=== PATIENT | female | born 1985 | race Caucasian/White ===

== ENCOUNTER 2019-03-29 08:20 | Emergency (ER) | payer MEDICAID ==
[2019-03-29] MEDS ORDERED: Promethazine 25 MG/ML SDV IM ONE (09:16)
[2019-03-29] MEDS ORDERED: Diazepam 5 MG Tab PO ONE (09:16)
[2019-03-29] MEDS ORDERED: HYDROmorphone 2 MG/ML SDV IM ONE (09:16)
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
== END 2019-03-29 10:00 | disposition home or self-care (01) ==
LOC: MERGE 08:20 → FB.ED 08:20 → EDBD 08:20 → FB.ED 10:00
DX: S33.5XXA Sprain of ligaments of lumbar spine, initial encounter (principal); K21.9 Gastro-esophageal reflux disease without esophagitis; F17.210 Nicotine dependence, cigarettes, uncomplicated; Z88.7 Allergy status to serum and vaccine; X50.0XXA Overexertion from strenuous movement or load, initial encounter
CPT/HCPCS: 96372; 99283; A9270; J1170; J2550

== ENCOUNTER 2019-07-03 01:34 | Emergency (ER) | payer MEDICAID ==
[2019-07-03] MEDS ORDERED: Ciprofloxacin 500 MG Tab PO ONE (02:11)
[2019-07-03] MEDS ORDERED: Phenazopyridine 95 MG Tab PO ONE (02:17)
[2019-07-03] MEDS ORDERED: Phenazopyridine 95 MG Tab ONE (02:20)
--- NOTE | 2019-07-03 02:25 | EDM.PDOC ---
ED HPI GENERAL MEDICAL PROBLEM - General Chief Complaint: Genitourinary Problem Stated Complaint: BLADDER INFECTION Time Seen by Provider: 07/03/19 01:50 Source of Information: Reports: Patient, Family History Limitations: Reports: No Limitations - History of Present Illness INITIAL COMMENTS - FREE TEXT/NARRATIVE: 33 y.o.w.f with a H/O disc prolapse, come to the ed with burning urinations of 1 day. No SOB, no CP, no N/V/D or any other acute med issues. 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 - Related Data Allergies Allergy/AdvReac Type Severity Reaction Status Date / Time tetanus and diphtheria Allergy Hives Verified 07/03/19 03:25 toxoids bees Allergy Airway Uncoded 07/03/19 03:26 Tightness steri strips Allergy Rash Uncoded 07/03/19 03:27 Home Meds: Home Meds Ciprofloxacin HCl [Cipro] 500 mg PO BID #20 tablet 07/03/19 [Rx] Gabapentin [Neurontin] 100 mg PO TID 07/03/19 [History] Omeprazole 20 mg PO DAILY 07/03/19 [History] Phenazopyridine HCl [Pyridium] 100 mg PO TID #9 tablet 07/03/19 [Rx] Past Medical History Gastrointestinal History: Reports: GERD Genitourinary History: Reports: None LAP HAND TOOL History: Reports: Endometriosis, Other (See Below), Polycystic Ovaries Other LAP HAND TOOL History: exp lap with cyst removal. Musculoskeletal History: Reports: Back Pain, Chronic, Fracture, Other (See Below ) Other Musculoskeletal History: hx fx R 2nd toe, R thumb, cyst removal L hand/ wrist Neurological History: Reports: Concussion Psychiatric History: Reports: Suicide Attempt Endocrine/Metabolic History: Reports: Obesity/BMI 30+ - Infectious Disease History Infectious Disease History: Reports: Chicken Pox - Past Surgical History GI Surgical History: Reports: Cholecystectomy, Hernia Repair/Other (Umbilical) Female Surgical History: Reports: Other (See Below) (Exploratory laparotomy) Musculoskeletal Surgical History: Reports: Other (See Below) (Left wrist ganglion cyst removal) Social & Family History - Family History Family Medical History: Noncontributory - Caffeine Use Caffeine Use: Reports: Coffee - Living Situation & Occupation Occupation: Employed (Works as a healthcare provider at a custodial) ED ROS GENERAL - Review of Systems Review Of Systems: See Below Constitutional: Reports: No Symptoms HEENT: Reports: No Symptoms Respiratory: Reports: No Symptoms Cardiovascular: Reports: No Symptoms Endocrine: Reports: No Symptoms GI/Abdominal: Reports: No Symptoms : Reports: Dysuria Musculoskeletal: Reports: Back Pain Skin: Reports: No Symptoms Neurological: Reports: No Symptoms Psychiatric: Reports: No Symptoms Hematologic/Lymphatic: Reports: No Symptoms Immunologic: Reports: No Symptoms ED EXAM, RENAL/ - Physical Exam Exam: See Below Exam Limited By: No Limitations General Appearance: Alert, WD/WN, Mild Distress Eye Exam: Bilateral Eye: Normal Inspection Ears: Normal External Exam, Normal Canal Nose: Normal Inspection, Normal Mucosa, No Blood Throat/Mouth: Normal Lips, Normal Voice, No Airway Compromise Head: Atraumatic, Normocephalic Neck: Normal Inspection Respiratory/Chest: No Respiratory Distress, Lungs Clear, Normal Breath Sounds, No Accessory Muscle Use, Chest Non-Tender Cardiovascular: Normal Peripheral Pulses, Regular Rate, Rhythm, No Edema, No Gallop, No Murmur, No Rub GI/Abdominal: Soft, No Organomegaly, Tender (suprapubic) (Female) Exam: Deferred Rectal (Female) Exam: Deferred Back Exam: Normal Inspection, Full Range of Motion Extremities: Normal Inspection, Normal Range of Motion, Non-Tender Neurological: Alert, Oriented, CN II-XII Intact, Normal Cognition Psychiatric: Normal Affect, Normal Mood Skin Exam: Warm, Dry, Intact, Normal Color, No Rash Lymphatic: No Adenopathy Course - Vital Signs Text/Narrative:: 33 y.o.w.f with a H/O disc prolapse, come to the ed with burning urinations of 1 day. No SOB, no CP, no N/V/D or any other acute med issues. BP 109/73, RR 18 Pulse ox 98% on RA temp 36.8 pulse 78 PE: WNWD W F with urinary symptoms. Labs: UA: UTI with hematuria, U Cx is pending Impression: H/O Bulging disk, UTI Tx: Pyridium, Cipro Reexam: Improved Plan: D/C with instructions Last Recorded V/S: Last Vital Signs Temp 36.6 C 07/03/19 01:50 Pulse 88 07/03/19 01:50 Resp 16 07/03/19 01:50 BP 109/73 07/03/19 01:50 Pulse Ox 97 07/03/19 01:50 - Orders/Labs/Meds Orders: Active Orders 24 hr Category Date Time Status CULTURE URINE [RM] Stat Lab 07/03/19 01:45 Received Labs: Laboratory Tests 07/03/19 07/03/19 Range/Units 01:48 01:48 Urine Color Yellow (YELLOW) Urine Appearance Slightly cloudy (CLEAR) Urine pH 5.0 (5.0-6.5) Ur Specific [place]lan 1.025 (1.010-1.025) Urine Protein Trace (NEGATIVE) mg/dL Urine Glucose (UA) Normal (NORMAL) mg/dL Urine Ketones 15 H (NEGATIVE) mg/dL Urine Occult Blood Moderate H (NEGATIVE) Urine Nitrite Negative (NEGATIVE) Urine Bilirubin Negative (NEGATIVE) Urine Urobilinogen Normal (NEGATIVE) mg/dL Ur Leukocyte Esterase Large H (NEGATIVE) Urine RBC 5-10 H (0-5) Urine WBC 20-30 H (0-5) Ur Squamous Epith Cells Moderate H (NS,R,O) Amorphous Sediment Few Urine Bacteria Moderate H (NS) Urine HCG, Qual Negative (NEGATIVE) Meds: Medications Discontinued Medications Generic Name Dose Route Start Last Admin Trade Name Freq PRN Reason Stop Dose Admin Ciprofloxacin 500 mg 07/03/19 02:11 07/03/19 02:21 Ciprofloxacin Hcl PO 07/03/19 02:12 500 mg ONETIME ONE Administration Phenazopyridine HCl 95 mg 07/03/19 02:17 07/03/19 02:21 Urinary Pain Relief PO 07/03/19 02:18 95 mg ONETIME ONE Administration Phenazopyridine HCl Confirm 07/03/19 02:20 07/03/19 03:18 Urinary Pain Relief Administered 07/03/19 02:21 Not Given Dose 95 mg .ROUTE .STK-MED ONE Departure - Departure Time of Disposition: 02:22 Disposition: Home, Self-Care 01 Condition: Good Clinical Impression: Back pain, chronic UTI (urinary tract infection) Qualifiers: Urinary tract infection type: acute cystitis Hematuria presence: with hematuria Qualified Code(s): N30.01 - Acute cystitis with hematuria - Discharge Information Prescriptions: Ciprofloxacin HCl [Cipro] 500 mg PO BID #20 tablet Phenazopyridine HCl [Pyridium] 100 mg PO TID #9 tablet Referrals: Mercedez Sthal NP [Primary Care Provider] - Forms: ED Department Discharge Additional Instructions: Please increase water intake, please the the meds as recommended, please f/u, come back if your symptoms get worse acutely. Please apply ice to your back, take Motrin for pain - My Orders Last 24 Hours: My Active Orders 07/03/19 01:45 CULTURE URINE [RM] Stat - Assessment/Plan Last 24 Hours: My Active Orders 07/03/19 01:45 CULTURE URINE [RM] Stat
== END 2019-07-03 02:35 | disposition home or self-care (01) ==
LOC: FB.ED 01:34
DX: M54.5 Low back pain (principal); G89.29 Other chronic pain; N30.01 Acute cystitis with hematuria; K21.9 Gastro-esophageal reflux disease without esophagitis; E66.9 Obesity, unspecified; Z68.32 Body mass index [BMI] 32.0-32.9, adult; Z91.030 Bee allergy status; Z88.7 Allergy status to serum and vaccine; Z91.09 Other allergy status, other than to drugs and biological substances; Z79.899 Other long term (current) drug therapy
CPT/HCPCS: 81001; 81025; 87086; 99283; A9270

== ENCOUNTER 2020-07-24 22:07 | Emergency (ER) | payer MEDICAID ==
[2020-07-24] MEDS ORDERED: predniSONE 20 MG Tab PO ONE (22:45)
--- NOTE | 2020-07-24 22:50 | EDM.PDOC ---
ED HPI GENERAL MEDICAL PROBLEM - General Chief Complaint: Respiratory Problem Stated Complaint: ASTHMA Time Seen by Provider: 07/24/20 22:35 Source of Information: Reports: Patient History Limitations: Reports: No Limitations - History of Present Illness INITIAL COMMENTS - FREE TEXT/NARRATIVE: Alaina comes into [facility] ED with a 10 hour hx of chest congestion, wheezing, SOB, cough, and malaise. She has felt febrile, although she was afebrile on admissin. There is headache, lt headiness, anxiety, restlessness, and exhaustion. She has a PMH of asthma, and last used Albuterol at 6 pm this evening. She went thru the Clinic Covid screen today, results pending. mid chest Pain Score (Numeric/FACES): 10 - Related Data Allergies Allergy/AdvReac Type Severity Reaction Status Date / Time tetanus and diphtheria Allergy Hives Verified 07/03/19 03:25 toxoids bees Allergy Airway Uncoded 07/03/19 03:26 Tightness steri strips Allergy Rash Uncoded 07/03/19 03:27 Home Meds: Home Meds Albuterol Sulfate [Albuterol Sulfate Hfa] 2 puff IH Q4HR PRN 07/24/20 [History] Cetirizine [ZyrTEC] 10 mg PO DAILY 07/24/20 [History] Topiramate [Topamax] 50 mg PO BID 07/24/20 [History] Venlafaxine HCl [Venlafaxine ER] 150 mg PO DAILY 07/24/20 [History] busPIRone HCl [busPIRone] 30 mg PO BID 07/24/20 [History] clonazePAM [Clonazepam] 0.5 mg PO BID 07/24/20 [History] predniSONE [Prednisone] 20 mg PO BID #10 tablet 07/24/20 [Rx] tiZANidine 2 mg PO DAILY 07/24/20 [History] traZODone 100 mg PO BEDTIME 07/24/20 [History] Past Medical History Gastrointestinal History: Reports: GERD Genitourinary History: Reports: None Other Genitourinary History: Cysts on ovaries. 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 Musculoskeletal History: Reports: Back Pain, Chronic, Fracture, Other (See Below) Other Musculoskeletal History: hx fx R 2nd toe, R thumb, cyst removal L hand/wrist Neurological History: Reports: Concussion Other Neuro History: Bulging discs at tailbone and L1S1. Psychiatric History: Reports: Suicide Attempt Endocrine/Metabolic History: Reports: Obesity/BMI 30+ - Infectious Disease History Infectious Disease History: Reports: Chicken Pox - Past Surgical History GI Surgical History: Reports: Cholecystectomy, Hernia Repair/Other (Umbilical) Female Surgical History: Reports: Other (See Below) (Exploratory laparotomy) Musculoskeletal Surgical History: Reports: Other (See Below) (Left wrist ganglion cyst removal) Social & Family History - Family History Family Medical History: Noncontributory - Caffeine Use Caffeine Use: Reports: Coffee - Living Situation & Occupation 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 ED EXAM, GENERAL - Physical Exam Exam: See Below Exam Limited By: No Limitations General Appearance: Alert, WD/WN, No Apparent Distress, Anxious, Obese Eye Exam: Bilateral Eye: EOMI, Normal Inspection, PERRL Ears: Normal External Exam Nose: Normal Inspection Throat/Mouth: Normal Inspection, Normal Lips, Normal Oropharynx, Normal Voice Head: Normocephalic Neck: Normal Inspection, Supple, Non-Tender Respiratory/Chest: Chest Non-Tender, Crackles, Wheezing, Prolonged Expiration Cardiovascular: Normal Peripheral Pulses, Regular Rate, Rhythm, No Murmur GI/Abdominal: Normal Bowel Sounds, Soft, Non-Tender, No Organomegaly, No Distention, No Mass (Female) Exam: Deferred Rectal (Female) Exam: Deferred Back Exam: Normal Inspection Extremities: Normal Inspection Neurological: Alert, Oriented, CN II-XII Intact, Normal Reflexes, No Motor/Sensory Deficits Psychiatric: Normal Affect, Anxious Skin Exam: Warm, Dry, Intact, Normal Color, No Rash Lymphatic: No Adenopathy Course - Vital Signs Text/Narrative:: Following assessment, I administered Prednisone 40 mg po and a DuoNeb pending results of lab work, all baseline, Covid 19 NEG. She was clinically improved at the time of discharge. Last Recorded V/S: Last Vital Signs Temp 36.8 C 07/24/20 22:07 Pulse 95 07/24/20 22:07 Resp 15 07/24/20 22:07 BP 147/82 H 07/24/20 22:07 Pulse Ox 100 07/24/20 22:07 - Orders/Labs/Meds Orders: Active Orders 24 hr Category Date Time Status RT Aerosol Therapy [RC] ASDIRECTED Care 07/24/20 23:41 Active Labs: Laboratory Tests 07/24/20 07/24/20 07/24/20 Range/Units 22:45 23:00 23:00 WBC 11.8 (4.5-12.0) X10-3/uL RBC 4.78 (3.23-5.20) x10(6)uL Hgb 15.2 (11.5-15.5) g/dL Hct 44.3 (30.0-51.3) % MCV 92.7 (80-96) fL MCH 31.8 (27.7-33.6) pg MCHC 34.3 (32.2-35.4) g/dL RDW 14.3 (11.5-15.5) % Plt Count 270 (125-369) X10(3)uL MPV 8.1 (7.4-10.4) fL Neut % (Auto) 72.5 (46-82) % Lymph % (Auto) 22.7 (13-37) % Dubois % (Auto) 3.3 L (4-12) % Eos % (Auto) 1 (1.0-5.0) % Baso % (Auto) 0 (0-2) % Neut # (Auto) 8.6 H (1.6-8.3) # Lymph # (Auto) 2.7 (0.6-5.0) # Dubois # (Auto) 0.4 (0.0-1.3) # Eos # (Auto) 0.1 (0.0-0.8) # Baso # (Auto) 0.0 (0.0-0.2) # Sodium 140 (135-145) mmol/L Potassium 3.5 (3.5-5.3) mmol/L Chloride 105 (100-110) mmol/L Carbon Dioxide 23 (21-32) mmol/L BUN 11 (7-18) mg/dL Creatinine 1.0 (0.55-1.02) mg/dL Est Cr Clr Drug Dosing 75.61 mL/min Estimated GFR (MDRD) > 60 (>60) BUN/Creatinine Ratio 11.0 (9-20) Glucose 101 (80-116) mg/dL Calcium 9.1 (8.6-10.2) mg/dL SARS-CoV-2 RNA (HARIKA) Negative (NEGATIVE) Meds: Medications Discontinued Medications Generic Name Dose Route Start Last Admin Trade Name Andrezq PRN Reason Stop Dose Admin Albuterol/Ipratropium 3 ml 07/24/20 23:40 07/24/20 23:46 Duoneb 3.0-0.5 Mg/3 Ml NEB 07/24/20 23:41 3 ml ONETIME ONE Administration Lorazepam 1 mg 07/24/20 22:53 07/24/20 22:57 Ativan PO 07/24/20 22:54 1 mg ONETIME ONE Administration Prednisone 40 mg 07/24/20 22:45 07/24/20 22:54 Prednisone PO 07/24/20 22:46 40 mg ONETIME ONE Administration Departure - Departure Time of Disposition: 23:59 Disposition: Home, Self-Care 01 Condition: Fair Clinical Impression: Asthma exacerbation Qualifiers: Asthma severity: moderate Asthma persistence: unspecified Qualified Code(s): J45.901 - Unspecified asthma with (acute) exacerbation - Discharge Information *PRESCRIPTION DRUG MONITORING PROGRAM REVIEWED*: Not Applicable *COPY OF PRESCRIPTION DRUG MONITORING REPORT IN PATIENT KEVON: Not Applicable Prescriptions: predniSONE [Prednisone] 20 mg PO BID #10 tablet Referrals: Linnea Newby, PERSONAL PROPERTY ASSESSOR [Primary Care Provider] - Forms: ED Department Discharge Sepsis Event Note (ED) - Evaluation Sepsis Screening Result: No Definite Risk - Focused Exam Vital Signs: Vital Signs Temp Pulse Resp BP Pulse Ox 07/24/20 22:07 36.8 C 95 15 147/82 H 100 - Problem List & Annotations (1) Asthma exacerbation SNOMED Code(s): 405066183 Code(s): J45.901 - UNSPECIFIED ASTHMA WITH (ACUTE) EXACERBATION Status: Acute Current Visit: Yes Annotation/Comment:: I dispensed Prednisone 40 mg per day x 5 days, advised Albuterol MDI as directed, and admonished to quit smoking. Qualifiers: Asthma severity: moderate Asthma persistence: unspecified Qualified Code(s): J45.901 - Unspecified asthma with (acute) exacerbation - Problem List Review Problem List Initiated/Reviewed/Updated: Yes - My Orders Last 24 Hours: My Active Orders 07/24/20 23:41 RT Aerosol Therapy [RC] ASDIRECTED - Assessment/Plan Last 24 Hours: My Active Orders 07/24/20 23:41 RT Aerosol Therapy [RC] ASDIRECTED Plan: Follow up with PCP if needed.
[2020-07-24] MEDS ORDERED: LORazepam 1 MG Tab PO ONE (22:53)
[2020-07-24] MEDS ORDERED: Albuterol/Ipratropium 3.0-0.5 MG/3 ML Neb Soln NEB ONE (23:40)
== END 2020-07-25 00:11 | disposition home or self-care (01) ==
LOC: FB.ED 22:07
DX: J45.901 Unspecified asthma with (acute) exacerbation (principal); E66.9 Obesity, unspecified; Z88.7 Allergy status to serum and vaccine; Z91.09 Other allergy status, other than to drugs and biological substances; Z91.030 Bee allergy status; Z90.49 Acquired absence of other specified parts of digestive tract; Z20.828 Contact with and (suspected) exposure to other viral communicable diseases; Z68.35 Body mass index [BMI] 35.0-35.9, adult
CPT/HCPCS: 36415; 80048; 85025; 87635; 93005; 94640; 99283; 99285; A9270; J7512; J7620-GY; U0002